=== PATIENT | male | born 2000 | race African-American/Black ===

== ENCOUNTER 2022-01-25 10:00 | Emergency (ER) | payer OTHER, SELFPAY ==
--- NOTE | ~2022-01-25 | XR_ITS ---
EXAMINATION: XR FINGER, LEFT CLINICAL INFORMATION: Fourth finger pain. COMPARISON: None TECHNIQUE: 3 views of the left right finger. FINDINGS: There is no visible fracture or bony abnormality. No loose body seen. There is minimal soft tissue swelling PIP joint fourth digit XR/XR finger LT min 2V IMPRESSION: Minimal soft tissue swelling PIP joint fourth digit. No visible acute fracture or dislocation seen.
[2022-01-25 10:01] VITALS: BP 140/74; PULSE 78; RESP 18; TEMP 36.6; O2SAT 98; BMI 24.5
--- NOTE | 2022-01-25 11:40 | ED_ITS ---
HPI - General Adult General Chief complaint: General Medical Stated complaint: Tightening throat/ Bowel issues/Headache Time Seen by Provider: 01/25/22 11:09 Source: patient Mode of arrival: ambulatory Limitations: no limitations History of Present Illness HPI narrative: 22-year-old male who denies any medical history presenting to the ER with complaints of feeling like his throat is closing for the past 3 months and also left fourth finger for a few months. reports he has also had a bad odor/taste in his throat. He also reports that he has had green/ brown feces for the past few months. He reports that he is currently in [employer] currently studying [employer] and is having a lot of difficulties there that are making him very anxious and sad regarding school. Denies headaches, dizziness, neck pain/stifness, CP/SOB, MARTINEZ, Orthopnea, paresthesias, cough, nausea/ vomiting/ diarrhea constipation, black or bloody stools, Back pain, abdominal pain, rashes, recent travel or sick contacts or any other symptoms complaints or concerns at this time. MD complaint: multiple complaints Onset (ago): month(s) Related Data Previous Rx's Medication Instructions Recorded amoxicillin 875 mg-potassium 1 tab PO BID 7 days #14 tabs 01/25/22 clavulanate 125 mg tablet chlorhexidine gluconate 0.12 % 15 ml buccal BID halitosis #473 mL 01/25/22 mouthwash Allergies Allergy/AdvReac Type Severity Reaction Status Date / Time No Known Allergies Allergy Verified 01/25/22 10:32 Review of Systems Review of Systems: Constitutional : No Fever, No Chills ENT/Mouth : + halitosis, No Ear Pain, No Nasal Congestion, No sore throat Eyes: No Eye Pain, No Swelling, No Redness Cardiovascular : No Chest Pain, No SOB Respiratory : No Cough, No Sputum, No Dyspnea Gastrointestinal : No ingestions, No Nausea, No Vomiting, No Diarrhea, No Hematochezia, No Melena Genitourinary : No Dysuria, No Urinary Frequency, No Hematuria Musculoskeletal : + left fourth finger pain, No Myalgias Skin : No Skin Lesions, No rash Neuro : No Weakness, No Numbness, No Paresthesias, No Dizziness, No Headache Psych : + Anxiety, + Depression, No SI, No thoughts of self injury, No HI, No AVH, Heme/Lymph: No Lymphadenopathy Endocrine : No Polyuria, No Polydipsia Yes all other systems are reviewed and are negative [facility] Past Medical History Attestation statement: The following information was validated with the patient. Source: old records reviewed and nursing notes reviewed Social History Social History Advance Directives: No Advance Directives Information Provided: No Physical Exam ED Vital Signs: Vital Signs - 24 hr 01/25/22 10:01 Temperature 98 F Pulse Rate 78 Respiratory Rate 18 Blood Pressure 140/74 H Pulse Oximetry 98 Oxygen Delivery Method Room Air BMI result Body Mass Index 24.5 vital signs have been reviewed as normal and appeared to be correct. Blood pressure 140/74. Heart rate normal. Respiration rate normal. Temperature normal. Oxygen saturation normal. Appearance: Alert. Oriented X3. No acute distress. Head: Normal external exam. Normocephalic. Atraumatic. Eyes: PERRLA. EOMI. Conjunctiva and sclera normal. Eyelids normal. ENT: EAC normal. TM's Normal. Pharynx normal. Uvula midline. Moist mucous membranes. No lesions/ulcerations or masses noted on the tongue. Normal voice. No trismus noted. No drooling noted. No muffled voice noted. Neck: Normal inspection. Neck supple. FROM. No adenopathy. Thyroid Normal. No tracheal deviation noted. No crepitus is noted. No meningeal signs. No neck mass noted. No signs of trauma noted. CVS: Normal heart rate and rhythm. Heart sound normal. Pulses normal throughout. No murmurs/rales/gallops. Respiratory: No respiratory distress. Painless inspiration. Breath sounds normal. No wheezes/rales/rhonchi noted. Chest nontender. No crepitus is noted. No signs of trauma noted. No accessory muscle usage noted or decreased air movement noted. No signs of trauma. Abdomen: Soft and nontender. Bowel sounds normal in all 4 quadrants. No distention noted. No organomegaly noted. No visible injury noted. Back: Full range of motion noted. Skin: Skin warm and dry. Normal skin color. Normal skin turgor. No rashes/lesions/lacerations noted. Extremities: Extremities exhibit normal range of motion and nontender. Neuro: Oriented X 3. No motor deficit. No sensory deficit. Reflexes normal. Normal steady gait. No focal neuro deficits noted. CN's II-XII intact bilaterally? Vascular: + radial pulses/+ 2 distal pedal pulses/+2 dorsalis pedis b/l. Normal cap refill. No cyanosis noted to upper extremity nails and lower extremity toes nails. Course Course Course Narrative: 12noon 22-year-old male who denies any medical history presenting to the ER with complaints of feeling like his throat is closing for the past 3 months and also left fourth finger for a few months. reports he has also had a bad odor/taste in his throat. He also reports that he has had green/ brown feces for the past few months. He reports that he is currently in [employer] currently studying [employer] and is having a lot of difficulties there that are making him very anxious and sad regarding school. patient had a negative x-ray of his left hand only revealed soft tissue swelling. His exam is completely normal no trismus /drooling / stridor. Uvula is midline. No tracheal deviation noted. No meningeal sign noted. Normal voice. No lymphadenopathy noted. Full range of motion of the neck. Therefore at this time will DC home with antibiotics and symptomatic treatment instructions to follow-up with orthopedics as needed and to return if any new or worsening symptoms. Patient understands agrees with this plan. Reevaluation(s) Reevaluation #1: When the nurse went to discharge the patient the patient started acting like he could not understand what the nurse was explaining to him and he just kept rolling his eyes around seen very confused and not himself therefore the nurse brought it to my attention I went back into the evaluate the patient and he appears very anxious/ depressed. He reports that he feels like he is not getting the same treatment as others at school. He reports that he was homeless and is behind on all his bills due to he is not able to work while he is at [employer]. although he denies any SI / HI/ auditory visualizations thoughts of self-injury. Although I offered him to speak to 1 of our social workers from the care team and he is agreeable to this. Therefore patient is placed in Physician observation because the patient needs more time to be evaluated by care team. Will continue to monitor. Time: 12:15 Reevaluation #2: patient was cleared by the care team. Reports that he no longer wants to go to the school that he is at although denies any SI/ HI / auditory visualizations thoughts of self-injury. Therefore explained to the patient that we cannot keep him here just because he does not want to go back to school and because he does not like the school he is at therefore explained to him that he should speak to his guidance counselor for further recommendations and to return if any new or worsening symptoms. Patient understands agrees with this plan. Time: 14:51 Medical Decision Making Medical Records Medical records reviewed: Yes I reviewed the patient's medical records. Lab Data Lab results reviewed: Yes I reviewed the patient's lab results. Imaging Data left finger x-ray: Attestation: I personally reviewed and interpreted this imaging study as audrey montes: Radiologist's impression: FINDINGS: There is no visible fracture or bony abnormality. No loose body seen. There is minimal soft tissue swelling PIP joint fourth digit XR/XR finger LT min 2V IMPRESSION: Minimal soft tissue swelling PIP joint fourth digit. No visible acute fracture or dislocation seen. Discharge Plan Discharge Clinical Impression: Sprain of finger of left hand, Halitosis, Anxiety Patient Disposition: Home, Self-Care Instructions: Sprain (ED) Prescriptions: New amoxicillin-pot clavulanate 875-125 mg tablet 1 tab PO BID 7 Days Qty: 14 0RF chlorhexidine gluconate 0.12 % mouthwash 15 ml buccal BID Qty: 473 0RF Referrals: Nestor Bhakta MD [Physician] - 2 weeks (as needed ) Physician,None [Primary Care Provider] - 2 days (your pcp) Stand Alone Forms: Work/School Release
--- NOTE | 2022-01-25 15:16 | MHC.CARE ---
CARE Team responded to consult request to speak to this patient who came in for various medical complaints and then reported depression and anxiety to the provider upon discharge. 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 In addition, patient is not satisfied with with his therapist, feels they are not connected and she does not understand him. Patient was generally pleasant, was polite and cooperative, clean, well-groomed, healthy looking, he appeared his stated age. Presented with an unusual affect and speech pattern, spoke in partial sentences and asked many questions to ensure he was being understood, somewhat grandiose. He denied suicidal ideation, plan or intention, stated that he has been hospitalized and put on medication and does not need that level of care. Patient did not present as psychotic, disorganized or unable to care for himself. He was clearly disappointment that CARE Team could not advocate on his behalf with [employer] to get more privileges though supportive listening, validation, encouragement and psychoeducation were provided. Patient is not having a psychiatric crisis and no further interventions are indicated. He called campus to tell staff he needed a ride home, work note available if needed. Spoke to [facility] provider about disposition.
== END 2022-01-25 15:10 | disposition home or self-care (01) ==
PROVIDERS: Emergency Provider Emergency Medicine
DX: R51.9 Headache, unspecified (principal); M79.645 Pain in left finger(s); R07.0 Pain in throat; F41.1 Generalized anxiety disorder; F43.0 Acute stress reaction; Z79.899 Other long term (current) drug therapy
CPT/HCPCS: 73140; 99283; 99284